=== PATIENT | female | born 2000 | race Caucasian/White ===

== ENCOUNTER 2022-05-09 16:40 | Emergency (ER) | payer BC ==
[2022-05-09 18:13] LABS: HEMOGLOBIN 13.7 gm/dl (12.3-15.3); RED BLOOD COUNT 4.84 M/UL (4.00-5.10); WHITE BLOOD COUNT 13.1 K/UL (4.5-11.0)
[2022-05-09] MEDS ORDERED: IBUPROFEN600 MG PO (21:02)
== END 2022-05-09 21:35 | disposition home or self-care (01) ==
LOC: ER1 16:40
PROVIDERS: Nurse Practitioner
DX: M54.50 Low back pain, unspecified (principal); Z90.49 Acquired absence of other specified parts of digestive tract; V29.9XXA Motorcycle rider (driver) (passenger) injured in unspecified traffic accident, initial encounter; Y92.410 Unspecified street and highway as the place of occurrence of the external cause
CPT/HCPCS: 71045; 81001; 84703; 85025; 96374; 96375; 99284; J2270; J2405; Q9967